=== PATIENT | female | born 1985 | race Two or more races ===

== ENCOUNTER 2019-12-22 09:58 | Outpatient (CLI) | payer OTHER ==
[~2019-12-22] VITALS: Ht 165.1 cm; Wt 77.3 kg
[2019-12-22 10:27] VITALS: BP 109/61
[2019-12-22 11:12] LABS: MICROSCOPIC INDICATED
== END 2019-12-22 11:56 | disposition home or self-care (01) ==
LOC: LDOP 09:58
PROVIDERS: ATTEND Student in an Organized Health Care Education/Training Program
DX: O26.892 Other specified pregnancy related conditions, second trimester (principal); R10.9 Unspecified abdominal pain; Z3A.21 21 weeks gestation of pregnancy
CPT/HCPCS: 81001; 84112; 87086; 99201; G0463